=== PATIENT | female | born 1975 | race Hispanic/Latino ===

== ENCOUNTER 2017-09-15 13:39 | Emergency (ER) | payer SELFPAY ==
--- NOTE | 2017-09-15 14:46 | RAD REPORT ---
EXAM DESCRIPTION: Dionisio Sorto (2 Views)09/15/2017 2:22 pm CLINICAL HISTORY: Chest pain COMPARISON: none FINDINGS: The lungs appear clear of acute infiltrate. The heart is normal size IMPRESSION: No acute abnormalities displayed
[2017-09-15] MEDS ORDERED: NA CHLORIDE 0.9% 1,000 ML ONE (15:02)
[2017-09-15 15:14] LABS: Absolute Lymphocytes (CBC) 0.6 K/uL (0.7-4.9); Absolute Monocytes 0.5 K/uL (0.1-1.3); Absolute Neutrophil 9.6 K/uL (1.8-8.0); Basophils % 0.1 % (0-1.3); Eosinophils % 0.7 % (0-4.4); Hematocrit 43.2 % (36.0-45.0); Lymphocytes % 5.6 % (15.3-44.8); MCH 29.3 pg (27.0-35.0); MCV 86.7 fL (80-100); Monocytes % 4.8 % (3.3-12.3); RBC Red Blood Cell Count 4.99 M/uL (3.86-4.86)
[2017-09-15 15:28] LABS: ALT/SGPT 23 U/L (12-78); AST/SGOT 17 U/L (15-37); Albumin 4.1 g/dL (3.4-5.0); Alkaline Phosphatase 66 U/L (45-117); BUN Blood Urea Nitrogen 8 mg/dL (7-18); Bicarbonate 27 mmol/L (21-32); Bilirubin Direct 0.2 mg/dL (0-0.2); Bilirubin Total 0.9 mg/dL (0.2-1.0); Glucose Level 91 mg/dL (74-106); Lipase 92 U/L (73-393); Potassium 3.8 mmol/L (3.5-5.1); Protein, Total 7.8 g/dL (6.4-8.2); Sodium Level 140 mmol/L (136-145)
[2017-09-15] MEDS ORDERED: hydrOXYzine HCl 25 MG TAB ONE (15:42)
--- NOTE | 2017-09-15 15:44 | EDPHYS ---
Physician Documentation [facility] Name: Juana Garcia Age: 42 yrs Sex: Female : 1975 Arrival Date: 09/15/2017 Time: 13:42 Bed 24 Private MD: ED Physician Alberto Gaviria HPI: 09/15 15:39 This 42 yrs old Female presents to ER via Wheelchair with complaints of Chest snw Pain, Rash. 15:39 The patient's rash thought to be caused by pt feels something crawling under skin s/p snw liver cleanse. The rash is located on the anterior aspect of right upper chest, anterior aspect of left upper chest and mid-sternal area. The rash can be described as macular, patchy. Onset: The symptoms/episode began/occurred suddenly. Severity of symptoms: At their worst the symptoms were moderate severe in the emergency department the symptoms are unchanged. The patient has not experienced similar symptoms in the past. It is unknown whether or not the patient has recently seen a physician. 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 - Social history:: Smoking status: Patient/guardian denies using tobacco. - Ebola Screening: : No symptoms or risks identified at this time. ROS: 14:53 Constitutional: Negative for fever, chills, and weight loss, Eyes: Negative for injury, snw pain, redness, and discharge, ENT: Negative for injury, pain, and discharge, Neck: Negative for injury, pain, and swelling, Cardiovascular: Negative for chest pain, palpitations, and edema, Respiratory: Negative for shortness of breath, cough, wheezing, and pleuritic chest pain, Back: Negative for injury and pain, : Negative for injury, bleeding, discharge, and swelling, MS/Extremity: Negative for injury and deformity, Neuro: Negative for headache, weakness, numbness, tingling, and seizure, Psych: Negative for depression, anxiety, suicide ideation, homicidal ideation, and hallucinations. 14:53 Abdomen/GI: Positive for abdominal pain. 14:53 Skin: Positive for rash, of the right clavicle, left clavicle, anterior aspect of right upper chest, anterior aspect of left upper chest and mid-sternal area. Exam: 14:53 Head/Face: Normocephalic, atraumatic. Eyes: Pupils equal round and reactive to light, snw extra-ocular motions intact. Lids and lashes normal. Conjunctiva and sclera are non-icteric and not injected. Cornea within normal limits. Periorbital areas with no swelling, redness, or edema. ENT: Nares patent. No nasal discharge, no septal abnormalities noted. Tympanic membranes are normal and external auditory canals are clear. Oropharynx with no redness, swelling, or masses, exudates, or evidence of obstruction, uvula midline. Mucous membranes moist. Neck: Trachea midline, no thyromegaly or masses palpated, and no cervical lymphadenopathy. Supple, full range of motion without nuchal rigidity, or vertebral point tenderness. No Meningismus. Chest/axilla: Normal chest wall appearance and motion. Nontender with no deformity. No lesions are appreciated. Cardiovascular: Regular rate and rhythm with a normal S1 and S2. No gallops, murmurs, or rubs. Normal PMI, no JVD. No pulse deficits. 14:53 Back: No spinal tenderness. No costovertebral tenderness. Full range of motion. MS/ Extremity: Pulses equal, no cyanosis. Neurovascular intact. Full, normal range of motion. Neuro: Awake and alert, GCS 15, oriented to person, place, time, and situation. Cranial nerves II-XII grossly intact. Motor strength 5/5 in all extremities. Sensory grossly intact. Cerebellar exam normal. Normal gait. Psych: Awake, anxious with orientation to person, place and time. Behavior, mood, and affect are fearful/anxious. Pt states she has :creepy crawlies" all over her 14:53 Constitutional: The patient appears alert, awake, anxious, obese, uncomfortable. 14:53 Respiratory: the patient does not display signs of respiratory distress, Respirations: shallow respirations, tachypnea, Breath sounds: are clear throughout, hyperventilating . 14:53 Abdomen/GI: Bowel sounds: normal, Palpation: soft, mild abdominal tenderness, in the right upper quadrant. Vital Signs: 13:48 BP 133 / 80; Pulse 93; Resp 22; Pulse Ox 99% ; Weight 86.18 kg; Height 5 ft. 2 in. sv (157.48 cm); Pain 0/10; 15:37 BP 129 / 63; Pulse 89; Resp 22; Pulse Ox 89% on R/A; kr2 17:36 BP 124 / 60; Pulse 88; Resp 17; Temp 98.1; Pulse Ox 100% on R/A; kr2 13:48 Body Mass Index 34.75 (86.18 kg, 157.48 cm) sv MDM: 13:43 Patient medically screened. snw 15:37 Data reviewed: vital signs, nurses notes. Data interpreted: Pulse oximetry: on room air snw is 99 %. Interpretation: normal. Counseling: I had a detailed discussion with the patient and/or guardian regarding: the historical points, exam findings, and any diagnostic results supporting the discharge/admit diagnosis, the presence of at least one elevated blood pressure reading (>120/80) during this emergency department visit, lab results, the need for outpatient follow up, to return to the emergency department if symptoms worsen or persist or if there are any questions or concerns that arise at home. Special discussion: Based on the history and exam findings, there is no indication for further emergent testing or inpatient evaluation. I discussed with the patient/guardian the need to see the primary care provider for further evaluation of the symptoms. ED course: unable to get GB ultrasound today, will instruct pt to f/u PCP. 09/15 14:45 Order name: Basic Metabolic Panel; Complete Time: 15:34 snw 09/15 14:45 Order name: CBC with Diff; Complete Time: 15:19 snw 09/15 14:45 Order name: Hepatic Function; Complete Time: 15:34 snw 09/15 14:45 Order name: Lipase; Complete Time: 15:34 snw 09/15 14:45 Order name: Urine Microscopic Only; Complete Time: 16:33 snw 09/15 16:00 Order name: Urine Dipstick--Ancillary (enter results); Complete Time: 16:33 em1 09/15 14:08 Order name: Chest Pa And Lat (2 Views) XRAY; Complete Time: 14:52 snw 09/15 14:45 Order name: US Abdomen Limited snw 09/15 14:45 Order name: Urine Test (obtain specimen); Complete Time: 15:59 snw 09/15 14:45 Order name: IV Saline Lock; Complete Time: 15:01 snw 09/15 16:00 Order name: Urine --Ancillary (enter results); Complete Time: 16:33 em1 09/15 16:21 Order name: Urine Culture EDNC 09/15 14:45 Order name: Labs collected and sent; Complete Time: 15:01 snw 09/15 14:45 Order name: Urine Dipstick-Ancillary (obtain specimen); Complete Time: 15:59 snw Administered Medications: 15:01 Drug: NS 0.9% 1000 ml Route: IV; Rate: 1 bolus; Site: left antecubital; mb3 16:15 Follow up: Response: No adverse reaction; IV Status: Completed infusion kr2 15:40 Drug: Atarax 50 mg Route: PO; kr2 17:38 Follow up: Response: No adverse reaction; Marked relief of symptoms kr2 Disposition: 17:54 Co-signature as Attending Physician, Alberto Gaviria MD. rn Disposition: 09/15/17 15:43 Discharged to Home. Impression: Paresthesia of skin, Unspecified abdominal pain. - Condition is Stable. - Discharge Instructions: Abdominal Pain, Adult, Biliary Colic, Paresthesia. - Prescriptions for Vistaril 25 mg Oral capsule - take 1 capsule by ORAL route 3 times per day; 30 capsule. - Work release form, Medication Reconciliation Form, Thank You Letter, Antibiotic Education, Prescription Opioid Use form. - Follow up: Private Physician; When: 1 - 2 days; Reason: Recheck today's complaints, Continuance of care, Re-evaluation by your physician. Follow up: Emergency Department; When: As needed; Reason: Worsening of condition. Signatures: Dispatcher [employer] [facility] Negrita Soliz RN RN Ignacia Izquierdo, RENAL CASE MANAGER-C RENAL CASE MANAGER-Csnw Alberto Gaviria MD MD rn Reaves, Karey, RN RN kr2 Shade Ling RN RN mb3 Corrections: (The following items were deleted from the chart) 17:38 15:43 09/15/2017 15:43 Discharged to Home. Impression: Paresthesia of skin; Unspecified kr2 abdominal pain. Condition is Stable. Forms are Medication Reconciliation Form, Thank You Letter, Antibiotic Education, Prescription Opioid Use. Follow up: Private Physician; When: 1 - 2 days; Reason: Recheck today's complaints, Continuance of care, Re-evaluation by your physician. Follow up: Emergency Department; When: As needed; Reason: Worsening of condition. snw
--- NOTE | 2017-09-15 15:44 | ER ---
Nurse's Notes [facility] Name: Juana Garcia Age: 42 yrs Sex: Female : 1975 Arrival Date: 09/15/2017 Time: 13:42 Bed 24 Private MD: Diagnosis: Paresthesia of skin;Unspecified abdominal pain Presentation: 09/15 13:40 Presenting complaint: Patient states: felt a "pop" on the left side of chest wall last sv night. "I feel like I have something crawling under my skin." c/o rash to entire body and pt stated she started taking a parasitic cleanse on Wednesday and symptoms started after. Transition of care: patient was not received from another setting of care. Onset of symptoms was September 14, 2017. Care prior to arrival: None. 13:40 Method Of Arrival: Wheelchair sv 13:40 Acuity: POOJA 3 sv 13:50 Risk Assessment: Do you want to hurt yourself or someone else? Patient reports no kr2 desire to harm self or others. Initial Sepsis Screen: Does the patient meet any 2 criteria? No. Patient's initial sepsis screen is negative. Does the patient have a suspected source of infection? No. Patient's initial sepsis screen is negative. 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 - Social history:: Smoking status: Patient/guardian denies using tobacco. - Ebola Screening: : No symptoms or risks identified at this time. Screenin:50 Fall Risk None identified. kr2 15:43 Abuse screen: Denies threats or abuse. Denies injuries from another. Nutritional kr2 screening: No deficits noted. Tuberculosis screening: No symptoms or risk factors identified. Assessment: 13:50 General: Appears in no apparent distress. uncomfortable, well groomed, well developed, kr2 well nourished, Behavior is cooperative, anxious, restless. Pain: Complains of pain in mid-sternal area Pain radiates to chest and right clavicle Pain currently is 8 out of 10 on a pain scale. Quality of pain is described as sharp, stabbing, Pain began last night Is continuous, Alleviated by nothing. Aggravated by increased activity. Neuro: Level of Consciousness is awake, alert, obeys commands, Oriented to person, place, time, situation, Appropriate for age. Cardiovascular: Heart tones S1 S2 present Capillary refill < 3 seconds in bilateral fingers Patient's skin is warm and dry. Rhythm is sinus tachycardia. Respiratory: Airway is patent Respiratory effort is even, unlabored, Respiratory pattern is regular, symmetrical. GI: Abdomen is flat, non-distended. : Denies burning with urination. EENT: EENT: Oral mucosa is moist. Derm: Skin is intact, is healthy with good turgor, Skin is pink, warm \\T\\ dry. Musculoskeletal: Circulation, motion, and sensation intact. 14:50 Reassessment: Patient appears in no apparent distress at this time. Patient and/or kr2 family updated on plan of care and expected duration. Pain level reassessed. Patient is alert, oriented x 3, equal unlabored respirations, skin warm/dry/pink. Patient anxious and continues to complain of chest pain. 15:30 Reassessment: Patient appears in no apparent distress at this time. Patient and/or kr2 family updated on plan of care and expected duration. Pain level reassessed. Patient is alert, oriented x 3, equal unlabored respirations, skin warm/dry/pink. Patient states feeling better. 16:19 Reassessment: Patient appears in no apparent distress at this time. Patient and/or kr2 family updated on plan of care and expected duration. Pain level reassessed. Patient is alert, oriented x 3, equal unlabored respirations, skin warm/dry/pink. Patient states feeling better. 16:33 Reassessment: awaiting ultrasound results prior to discharge. 17:36 Reassessment: Patient appears in no apparent distress at this time. Patient and/or kr2 family updated on plan of care and expected duration. Pain level reassessed. Patient is alert, oriented x 3, equal unlabored respirations, skin warm/dry/pink. Patient states feeling better. Vital Signs: 13:48 BP 133 / 80; Pulse 93; Resp 22; Pulse Ox 99% ; Weight 86.18 kg; Height 5 ft. 2 in. sv (157.48 cm); Pain 0/10; 15:37 BP 129 / 63; Pulse 89; Resp 22; Pulse Ox 89% on R/A; kr2 17:36 BP 124 / 60; Pulse 88; Resp 17; Temp 98.1; Pulse Ox 100% on R/A; kr2 13:48 Body Mass Index 34.75 (86.18 kg, 157.48 cm) sv ED Course: 13:42 Patient arrived in ED. em1 13:42 Ignacia Buchanan FNP-C [facility] snw 13:42 Alberto Gaviria MD is Attending Physician. snw 13:47 Triage completed. sv 13:48 Arm band placed on right wrist. sv 13:50 Patient has correct armband on for positive identification. Bed in low position. Call kr2 light in reach. Side rails up X 1. fixed income analyst on. Pulse ox on. NIBP on. Door closed. Warm blanket given. Head of bed elevated. 13:50 Patient maintains SpO2 saturation greater than 95% on room air. kr2 14:16 Patient moved to radiology via wheelchair. kw 14:17 X-ray completed. Portable x-ray completed in exam room. kw 14:17 Patient moved back from radiology. kw 14:17 Chest Pa And Lat (2 Views) XRAY In Process Unspecified. EDMS 14:31 Clarita Tristan, RN is Primary Nurse. kr2 14:56 Inserted saline lock: 20 gauge in left antecubital area, using aseptic technique. Blood mb3 collected. 15:20 EKG done, by ED staff, reviewed by Ignacia ROBLES. kr2 17:08 Note: us done portable/bedside. completed. lc3 17:10 US Abdomen Limited In Process Unspecified. EDMS 17:37 No provider procedures requiring assistance completed. IV discontinued, intact, kr2 bleeding controlled, No redness/swelling at site. Pressure dressing applied. Administered Medications: 15:01 Drug: NS 0.9% 1000 ml Route: IV; Rate: 1 bolus; Site: left antecubital; mb3 16:15 Follow up: Response: No adverse reaction; IV Status: Completed infusion kr2 15:40 Drug: Atarax 50 mg Route: PO; kr2 17:38 Follow up: Response: No adverse reaction; Marked relief of symptoms kr2 Outcome: 15:43 Discharge ordered by . snw 17:37 Discharged to home ambulatory, with family. kr2 17:37 Condition: good 17:37 Discharge instructions given to patient, family, Instructed on discharge instructions, follow up and referral plans. medication usage, Demonstrated understanding of instructions, follow-up care, medications, Prescriptions given X 1. 17:38 Patient left the ED. kr2 Signatures: Dispatcher [employer] EDNegrita Oliva, INOCENCIA RN Ignacia Izquierdo, TAX AUDIT MANAGER-C TAX AUDIT MANAGER-CsnSean Myers em1 Tigist Goodman, RN RN ss Tracy Melara Laulita lc3 Reaves, Karey, RN RN kr2 Shade Ling RN RN mb3 Corrections: (The following items were deleted from the chart) 17:38 17:36 BP 124 / 60; Pulse 88bpm; Resp 17bpm; Pulse Ox 100% RA; kr2 kr2
[2017-09-15 16:20] LABS: Urine Bacteria 20-50 /HPF (<20); Urine Culture Reflex Order REFLEXED; Urine Mucus 1+ /HPF (NONE SEEN)
[2017-09-15 16:21] LABS: Urine Blood 2+ (NEG); Urine Glucose NEGATIVE (NEG); Urine Protein NEGATIVE (NEG); Urine pH 5.5 (5.0-7.0)
--- NOTE | 2017-09-15 18:42 | RAD REPORT ---
EXAM DESCRIPTION: US - Abdomen Exam Limited - 09/15/2017 5:24 pm CLINICAL HISTORY: Abdominal pain. COMPARISON: None. FINDINGS: The gallbladder wall is not thickened. A gallstone is not seen. The biliary tree is normal caliber. IMPRESSION: Unremarkable gallbladder ultrasound.
--- NOTE | 2017-09-16 10:18 | EKG ---
Test Date: 2017-09-15 Test Time: 15:17:51 Incident Response Engineer: TASIA MEASUREMENT RESULTS: Intervals: Rate: 117 OR: 140 QRSD: 78 QT: 322 QTc: 449 [place]: P: 74 OR: 140 QRS: 81 T: 50 INTERPRETIVE STATEMENTS: Sinus tachycardia Otherwise normal ECG Compared to ECG 03/12/1998 18:25:00 Sinus rhythm no longer present Ventricular premature complex(es) no longer present Electronically Signed On 09-16-17 10:17:24 CDT by Evert Gutierrez
== END 2017-09-15 17:38 | disposition home or self-care (01) ==
LOC: ER 13:39
DX: R10.9 Unspecified abdominal pain (principal)
CPT/HCPCS: 36415; 71046; 76705; 80048; 80076; 81003; 81015; 81025; 83690; 85025; 87086; 87088; 93005; 96360; 99285; J7030

== ENCOUNTER 2022-11-10 13:44 | Emergency (ER) | payer SELFPAY ==
[2022-11-10] MEDS ORDERED: ONDANSETRON 4 MG/2 ML VIAL ONE (14:06)
[2022-11-10] MEDS ORDERED: NA CHLORIDE 0.9% 1,000 ML ONE (14:06)
[2022-11-10] MEDS ORDERED: MORPHINE 4 MG/ML SYR ONE (14:06)
[2022-11-10 14:11] LABS: Absolute Lymphocytes (CBC) 1.2 K/uL (0.7-4.9); Hematocrit 41.4 % (36.0-45.0); Lymphocytes % 9.1 % (15.3-44.8); MCV 85.6 fL (80-100); MPV 8.2 fL (7.6-11.3); Platelets 369 thou/uL (152-406); RBC Red Blood Cell Count 4.84 M/uL (3.86-4.86)
[2022-11-10 14:20] LABS: Albumin 3.6 g/dL (3.4-5.0); Bilirubin Total 0.8 mg/dL (0.2-1.0); Potassium 3.8 mEq/L (3.5-5.1); Protein, Total 7.6 g/dL (6.4-8.2)
[2022-11-10 14:59] LABS: Specific Gravity 1.011 (1.005-1.030)
[2022-11-10 15:11] LABS: Specific Gravity 1.011 (1.005-1.030); Urine Bacteria None Seen /HPF (<20); Urine Bilirubin NEGATIVE (Negative); Urine Blood 3+ (Negative); Urine Clarity Turbid (Clear); Urine Color Colorless (Yellow); Urine Glucose NEGATIVE (Negative); Urine Mucus Slight /HPF (None Seen); Urine Protein NEGATIVE (Negative); Urine RBC >50 /HPF (None Seen); Urine Urobilinogen Normal (Normal)
--- NOTE | 2022-11-10 15:48 | RAD REPORT ---
EXAM DESCRIPTION: CTAbdomen Pelvis W Contrast - 11/10/2022 3:35 pm CLINICAL HISTORY: Abdominal pain. ABD PAIN COMPARISON: No comparisons TECHNIQUE: Biphasic CT imaging of the abdomen and pelvis was performed with 100 ml non-ionic IV cont rast. All CT scans are performed using dose optimization technique as appropriate and may include automated exposure control or mA/KV adjustment according to patient size. FINDINGS: The lung bases are clear. The liver, spleen, pancreas, adrenal glands and left kidney are within normal limits. 4 mm stone is p resent mid right ureter resulting in mild right hydronephrosis. No bowel obstruction, free air, free fluid or abscess. The appendix is normal. No evidence of signi ficant lymphadenopathy. No suspicious bony findings. IMPRESSION: 4 mm stone mid right ureter resulting in mild right hydronephrosis.
--- NOTE | 2022-11-10 16:29 | EDPHYS ---
Physician Documentation [facility] Name: Juana Garcia Age: 47 yrs Sex: Female : 1975 Arrival Date: 11/10/2022 Time: 13:44 Bed 6 Private MD: ED Physician Krzysztof Eckert HPI: 11/10 14:06 This 47 yrs old Female presents to ER via EMS with complaints of Flank Pain, sp3 Nausea/Vomiting. 14:06 47-year-old female with no past medical history presents via EMS for right-sided sp3 abdominal pain, nausea and vomiting for approximately 12 hours. Patient's pain is described as in the right flank extending around to the front side. She has no left-sided symptoms, fever, headache, neck pain, chest pain, shortness of breath, dysuria, gross hematuria, URI symptoms, known sick contacts, travel history, prior kidney stone, past surgical history, or any other signs or symptoms on ROS or history at this time.. Historical: - Allergies: 13:49 No Known Allergies; ld1 - PMHx: 13:49 None; ld1 - PSHx: 13:49 None; ld1 - Immunization history:: Adult Immunizations up to date. - Social history:: Smoking status: Patient denies any tobacco usage or history of. Patient uses alcohol. ROS: 14:07 Constitutional: Negative for fever, chills, and weight loss, Eyes: Negative for injury, sp3 pain, redness, and discharge, ENT: Negative for injury, pain, and discharge, Neck: Negative for injury, pain, and swelling, Cardiovascular: Negative for chest pain, palpitations, and edema, Respiratory: Negative for shortness of breath, cough, wheezing, and pleuritic chest pain, Back: Negative for injury and pain, MS/Extremity: Negative for injury and deformity, Skin: Negative for injury, rash, and discoloration, Neuro: Negative for headache, weakness, numbness, tingling, and seizure, Psych: Negative for depression, anxiety, suicide ideation, homicidal ideation, and hallucinations, Allergy/Immunology: Negative for hives, rash, and allergies, Endocrine: Negative for neck swelling, polydipsia, polyuria, polyphagia, and marked weight changes, Hematologic/Lymphatic: Negative for swollen nodes, abnormal bleeding, and unusual bruising. 14:07 All other systems are negative. Exam: 14:07 Constitutional: This is a well developed, well nourished patient who is awake, alert, sp3 and in no acute distress. Head/Face: Normocephalic, atraumatic. Eyes: Pupils equal round and reactive to light, extra-ocular motions intact. Lids and lashes normal. Conjunctiva and sclera are non-icteric and not injected. Cornea within normal limits. Periorbital areas with no swelling, redness, or edema. ENT: Nares patent. No nasal discharge, no septal abnormalities noted. External auditory canals are clear. Oropharynx with no redness, swelling, or masses, exudates, or evidence of obstruction, uvula midline. Mucous membranes moist. Neck: Trachea midline, no thyromegaly or masses palpated, and no cervical lymphadenopathy. Supple, full range of motion without nuchal rigidity, or vertebral point tenderness. No Meningismus. Chest/axilla: Normal chest wall appearance and motion. Nontender with no deformity. No lesions are appreciated. Cardiovascular: Regular rate and rhythm with a normal S1 and S2. No gallops, murmurs, or rubs. Normal PMI, no JVD. No pulse deficits. Respiratory: Lungs have equal breath sounds bilaterally, clear to auscultation and percussion. No rales, rhonchi or wheezes noted. No increased work of breathing, no retractions or nasal flaring. Back: No spinal tenderness. No costovertebral tenderness. Full range of motion. Skin: Warm, dry with normal turgor. Normal color with no rashes, no lesions, and no evidence of cellulitis. MS/ Extremity: Pulses equal, no cyanosis. Neurovascular intact. Full, normal range of motion. Neuro: Awake and alert, GCS 15, oriented to person, place, time, and situation. Cranial nerves II-XII grossly intact. Motor strength 5/5 in all extremities. Sensory grossly intact. Cerebellar exam normal. Normal gait. Psych: Awake, alert, with orientation to person, place and time. Behavior, mood, and affect are within normal limits. Vital Signs: 13:48 BP 154 / 87; Pulse 65; Resp 18; Temp 98.3(O); Pulse Ox 100% ; Pain 10/10; ld1 13:48 Pain Scale: Adult ld1 MDM: 13:47 Patient medically screened. sp3 14:07 Data reviewed: vital signs, nurses notes. ED course: 47-year-old female with no past sp3 medical history now with right-sided abdominal pain. Differential diagnosis includes kidney stone, cholelithiasis, cholecystitis, biliary pathology, gastritis, pancreatitis, UTI, among others. I am not highly suspicious for acute coronary syndrome, vascular pathology including aortic dissection or aneurysm, MILK PICKUP TRUCK DRIVER pathology, STI, or any other pathology at this time. Work-up will include CT scan of the abdomen pelvis, laboratory values, urine analysis, IV fluids and morphine/Zofran as needed. Disposition pending work-up and patient course.. 16:26 ED course: Patient is 4 mm kidney stone with mild hydro-. Vital signs otherwise normal sp3 and laboratory values as well as urinalysis are also normal. Patient feels much better. She only wants to take Aleve for pain control she feels better and does not want any other medication. We will discharge her with urology follow-up and instructions to return if she worsens.. 11/10 13:48 Order name: CBC with Diff; Complete Time: 16:08 sp3 11/10 13:48 Order name: CMP; Complete Time: 16:08 sp3 11/10 13:48 Order name: Lipase; Complete Time: 16:08 sp3 11/10 13:48 Order name: Test, Urine; Complete Time: 16:08 sp3 11/10 13:48 Order name: Urinalysis w/ reflexes; Complete Time: 16:08 sp3 11/10 13:48 Order name: CT Abd/Pelvis - IV Contrast Only; Complete Time: 16:08 sp3 11/10 13:48 Order name: IV Saline Lock; Complete Time: 13:59 sp3 11/10 13:48 Order name: Labs collected and sent; Complete Time: 13:59 sp3 Administered Medications: 14:01 Drug: NS 0.9% IV 1000 ml Route: IV; Rate: 1 bolus; Site: right antecubital; ap3 14:01 Not Given (Patient Refused): Ondansetron IVP 4 mg IVP once; over 2 minutes ap3 14:01 Not Given (Patient Refused): morphine IVP or IV 4 mg IVP once over 4 mins ap3 Disposition Summary: 08/29/23 16:28 Discharge Ordered Location: Home sp3 Condition: Stable sp3 Diagnosis - Kidney stone, ureterolithiasis, renal colic sp3 Followup: sp3 - With: Orion Torres MD - When: Upon discharge from the Emergency Department - Reason: Further diagnostic work-up Discharge Instructions: - Discharge Summary Sheet sp3 - Kidney Stones sp3 - Dietary Guidelines to Help Prevent Kidney Stones sp3 Forms: - Medication Reconciliation Form sp3 - Thank You Letter sp3 - Antibiotic Education sp3 - Prescription Opioid Use sp3 - Patient Portal Instructions sp3 - Leadership Thank You Letter sp3 Signatures: Dispatcher [employer] Tiff Mirza RN RN ap3 Daylin Cotter RN RN ld1 Krzysztof Eckert MD MD sp3
--- NOTE | 2022-11-10 16:29 | ER ---
Nurse's Notes [facility] Name: Juana Garcia Age: 47 yrs Sex: Female : 1975 Arrival Date: 11/10/2022 Time: 13:44 Bed 6 Private MD: Diagnosis: Kidney stone, ureterolithiasis, renal colic Presentation: 11/10 13:48 Chief complaint: Patient states: Flank pain began this morning, N/V since last night. ld1 Coronavirus screen: At this time, the client does not indicate any symptoms associated with coronavirus-19. Ebola Screen: No symptoms or risks identified at this time. Initial Sepsis Screen: Does the patient meet any 2 criteria? No. Patient's initial sepsis screen is negative. Does the patient have a suspected source of infection? No. Patient's initial sepsis screen is negative. Risk Assessment: Do you want to hurt yourself or someone else? Patient reports no desire to harm self or others. Onset of symptoms was November 10, 2022 at 13:49. 13:48 Method Of Arrival: EMS: [facility] ld1 13:48 Acuity: POOJA 3 ld1 Triage Assessment: 13:49 General: Appears in no apparent distress. comfortable, Behavior is calm, cooperative, ld1 appropriate for age. Pain: Complains of pain in low back area Pain does not radiate. Pain currently is 7 out of 10 on a pain scale. Quality of pain is described as sharp, shooting, throbbing. Pain:. EENT: No deficits noted. Neuro: Level of Consciousness is awake, alert, obeys commands, Oriented to person, place, time, situation. Cardiovascular: Capillary refill < 3 seconds Patient's skin is warm and dry. Respiratory: Airway is patent Respiratory effort is even, unlabored. GI: Abdomen is round non-distended, Reports nausea, vomiting. : No signs and/or symptoms were reported regarding the genitourinary system. Derm: No signs and/or symptoms reported regarding the dermatologic system. Musculoskeletal: No signs and/or symptoms reported regarding the musculoskeletal system. Historical: - Allergies: 13:49 No Known Allergies; ld1 - PMHx: 13:49 None; ld1 - PSHx: 13:49 None; ld1 - Immunization history:: Adult Immunizations up to date. - Social history:: Smoking status: Patient denies any tobacco usage or history of. Patient uses alcohol. Screenin:50 [facility] ED Fall Risk Assessment (Adult) History of falling in the last 3 months, ld1 including since admission No falls in past 3 months (0 pts). Abuse screen: Denies threats or abuse. Denies injuries from another. Nutritional screening: No deficits noted. Tuberculosis screening: No symptoms or risk factors identified. Assessment: 13:50 Reassessment: See triage assessment. ld1 Vital Signs: 13:48 BP 154 / 87; Pulse 65; Resp 18; Temp 98.3(O); Pulse Ox 100% ; Pain 10/10; ld1 13:48 Pain Scale: Adult ld1 ED Course: 13:47 Patient arrived in ED. iw 13:47 Krzysztof Eckert MD is Attending Physician. sp3 13:49 Triage completed. ld1 13:49 Arm band placed on right wrist. ld1 13:50 Daylin Cotter, INOCENCIA is Primary Nurse. ld1 13:50 Patient has correct armband on for positive identification. Placed in gown. Bed in low ld1 position. Call light in reach. Side rails up X2. insole stiffener on. Pulse ox on. NIBP on. Door closed. Noise minimized. Warm blanket given. 13:50 No provider procedures requiring assistance completed. ld1 13:59 Initial lab(s) drawn, by me, sent to lab. Inserted saline lock: 20 gauge in right ap3 antecubital area, using aseptic technique. Blood collected. 15:37 CT Abd/Pelvis - IV Contrast Only In Process Unspecified. EDMS 16:28 Orion Torres MD is Referral Physician. sp3 17:04 IV discontinued, intact, bleeding controlled, No redness/swelling at site. ld1 Administered Medications: 14:01 Drug: NS 0.9% IV 1000 ml Route: IV; Rate: 1 bolus; Site: right antecubital; ap3 14:01 Not Given (Patient Refused): Ondansetron IVP 4 mg IVP once; over 2 minutes ap3 14:01 Not Given (Patient Refused): morphine IVP or IV 4 mg IVP once over 4 mins ap3 Medication: 13:50 VIS not applicable for this client. ld1 Outcome: 16:28 Discharge ordered by . sp3 17:04 Discharged to home ambulatory. ld1 17:04 Condition: stable 17:04 Discharge instructions given to patient, family, Instructed on discharge instructions, follow up and referral plans. Demonstrated understanding of instructions, follow-up care. 17:04 Patient left the ED. ld1 Signatures: Dispatcher [employer] Anne Marie Johnson RN RN iw Tiff Miller RN RN ap3 Daylin Cotter RN RN ld1 Krzysztof Eckert MD MD sp3
[2022-11-10 17:37] VITALS: BP 154/87; TEMP 98.3; O2SAT 100
== END 2022-11-10 17:04 | disposition home or self-care (01) ==
LOC: ER 13:44
DX: N20.0 Calculus of kidney (principal); N20.1 Calculus of ureter; N23 Unspecified renal colic
CPT/HCPCS: 36415; 74177; 80053; 81001; 81025; 83690; 85025; 99285; J2405; J7030; Q9967